=== PATIENT | female | born 1965 | race Two or more races ===

== ENCOUNTER 2016-05-19 07:19 | Emergency (ER) | payer OTHER | END 2016-05-19 11:09 | disposition home or self-care (01) | LOC: ER 07:19 | DX: M25.572 Pain in left ankle and joints of left foot (principal); M25.571 Pain in right ankle and joints of right foot; M25.532 Pain in left wrist; Z79.899 Other long term (current) drug therapy; F17.210 Nicotine dependence, cigarettes, uncomplicated | CPT/HCPCS: 36415; 80053; 84550; 85025; 86038; 86060; 86141; 86431 ==